=== PATIENT | female | born 1950 | race Caucasian/White ===

== ENCOUNTER 2016-08-21 16:24 | Emergency (ER) | payer MEDICARE ==
--- NOTE | 2016-08-21 16:30 | ER Document Report ---
ED Medical Screen (RME) - General Stated Complaint: FALL LEFT SIDE PAIN Mode of Arrival: Ambulatory Information source: Patient Notes: pt standing on a chair, fell hitting table with side and back. Pt denies any n /v. Pt c/o pain with deep inspiration. TRAVEL OUTSIDE OF THE [place] IN LAST 30 DAYS: No - Related Data Allergies/Adverse Reactions: adhesive [Adhesive] Allergy (Verified 06/28/16 11:48) codeine [Codeine] Allergy (Verified 06/28/16 11:48) latex [Latex] Allergy (Verified 06/28/16 11:48) Sulfa (Sulfonamide Antibiotics) Allergy (Verified 06/28/16 11:48) Past Medical History - Past Medical History Cardiac Medical History: Reports: Hx Hypercholesterolemia, Hx Hypertension GI Medical History: Reports: Hx Diverticulitis, Hx Gastroesophageal Reflux Disease, Hx Colonoscopy, Hx Endoscopy Musculoskeltal Medical History: Reports Hx Arthritis, Reports Hx Fibromyalgia, Reports Hx Musculoskeletal Deformity, Reports Hx Musculoskeletal Trauma Psychiatric Medical History: Reports: Hx Anxiety Traumatic Medical History: Reports: Hx Fractures - right rib Past Surgical History: Reports: Hx Appendectomy, Hx Cardiac Catheterization, Hx Cardiac Surgery - ablation for svt, Hx Cholecystectomy, Hx Hysterectomy, Hx Oral Surgery - salivary cland, Hx Umbilical Hernia - Immunizations Hx Diphtheria, Pertussis, Tetanus Vaccination: No Physical Exam - Respiratory Chest status: Tender - left lateral lower rib area, Pain with deep breathing
[2016-08-21] MEDS ORDERED: OXYCODONE-ACETAMINOPHEN 5-325 MG TABLET PO ONE (17:08)
--- NOTE | 2016-08-21 17:10 | ER Document Report ---
ED Fall - General Chief Complaint: Fall Stated Complaint: FALL LEFT SIDE PAIN Time seen by provider: 16:45 Mode of Arrival: Ambulatory Information source: Patient Notes: 65-year-old female presents to ED for fall with left rib pain. She states she was trying to take down a [place] decorations standing on a chair the chair slipped up from under her and she fell hitting the table and landing in the dog' s bowl. TRAVEL OUTSIDE OF THE [place] IN LAST 30 DAYS: No - HPI Occurred: Just prior to arrival Where: Home, Indoors Context: Fell from height - Fell off of the chair in the kitchen Associated symptoms: None Location of injury/pain: Other - Left lateral ribs Quality of pain: Sharp Severity: Moderate Pain Level: 4 - Related data Allergies/Adverse Reactions: adhesive [Adhesive] Allergy (Verified 08/21/16 16:31) codeine [Codeine] Allergy (Verified 08/21/16 16:31) latex [Latex] Allergy (Verified 08/21/16 16:31) Sulfa (Sulfonamide Antibiotics) Allergy (Verified 08/21/16 16:31) Past Medical History - General Information source: Patient - Social History Smoking Status: Never Smoker Cigarette use (# per day): No Chew tobacco use (# tins/day): No Frequency of alcohol use: Rare Drug Abuse: None Occupation: chief medical director Lives with: Family Family History: CAD, Other - Father with CHF and [place]. Mother with A-Fib. Patient has suicidal ideation: No Patient has homicidal ideation: No - Past Medical History Cardiac Medical History: Reports: Hx Hypercholesterolemia, Hx Hypertension GI Medical History: Reports: Hx Diverticulitis, Hx Gastroesophageal Reflux Disease, Hx Colonoscopy, Hx Endoscopy Musculoskeltal Medical History: Reports Hx Arthritis, Reports Hx Fibromyalgia, Reports Hx Musculoskeletal Deformity, Reports Hx Musculoskeletal Trauma Psychiatric Medical History: Reports: Hx Anxiety Traumatic Medical History: Reports: Hx Fractures - right rib Past Surgical History: Reports: Hx Appendectomy, Hx Cardiac Catheterization, Hx Cardiac Surgery - ablation for svt, Hx Cholecystectomy, Hx Hysterectomy, Hx Oral Surgery - salivary cland, Hx Orthopedic Surgery, Hx Umbilical Hernia - Immunizations Hx Diphtheria, Pertussis, Tetanus Vaccination: No Physical Exam - Vital signs Vitals: Temp Pulse Resp BP Pulse Ox 97.6 F 89 18 145/88 H 97 08/21/16 16:28 08/21/16 16:28 08/21/16 16:28 08/21/16 16:28 08/21/16 16:28 Interpretation: Hypertensive - Patient has a history of high blood pressure and is on medication she is in pain today - General General appearance: Appears well, Alert - HEENT Head: Normocephalic, Atraumatic Eyes: Normal Pupils: PERRL - Respiratory Respiratory status: No respiratory distress Chest status: Tender, Pain on movement, Pain with cough, Pain with deep breathing, Splinting Breath sounds: Normal Chest palpation: Normal - Cardiovascular Rhythm: Regular Heart sounds: Normal auscultation Murmur: No - Abdominal Inspection: Normal Distension: No distension Bowel sounds: Normal Tenderness: Nontender Organomegaly: No organomegaly - Back Back: Normal, Nontender - Extremities General upper extremity: Normal inspection, Nontender, Normal color, Normal ROM , Normal temperature General lower extremity: Normal inspection, Nontender, Normal color, Normal ROM , Normal temperature, Normal weight bearing. No: Tatiana's sign - Neurological Neuro grossly intact: Yes Cognition: Normal Orientation: AAOx4 Juan Alberto Coma Scale Eye Opening: Spontaneous Juan Alberto Coma Scale Verbal: Oriented [place] Coma Scale Motor: Obeys Commands [place] Coma Scale Total: 15 Speech: Normal Motor strength normal: LUE, RUE, LLE, RLE Sensory: Normal - Psychological Associated symptoms: Normal affect, Normal mood - Skin Skin Temperature: Warm Skin Moisture: Dry Skin Color: Normal Course - Re-evaluation Re-evalutation: 08/21/16 17:17 Discussed x-ray with patient and report given to patient for follow-up. Patient was treated with Percocet and instructed on use of an incentive spirometer to prevent pneumonia. Patient discharged home with a prescription for Percocet. - Vital Signs Vital signs: Temp Pulse Resp BP Pulse Ox 97.6 F 89 18 145/88 H 97 08/21/16 16:28 08/21/16 16:28 08/21/16 16:28 08/21/16 16:28 08/21/16 16:28 - Diagnostic Test Radiology reviewed: Image reviewed, Reports reviewed Discharge - Discharge Clinical Impression: left lateral rib fracture Condition: Stable Disposition: HOME, SELF-CARE Instructions: Family Physicians / Practices Additional Instructions: Rib Injuries and Fractures You have been diagnosed as having either bruised or broken ribs. These two injuries are treated in the same way. It will usually take four to six weeks for these injured ribs to heal. Sometimes, rib belts or anesthetic injections of the chest wall help reduce the pain. If you are using a rib belt, you should cough or take a deep breath at least every hour or two to prevent lung complications. You should not engage in any strenuous physical activity until released by your physician. The usual rule is "if it hurts, don't do it." Rib fractures can lead to serious lung complications including lung collapse, hemorrhage, and pneumonia. You should call the physician or return at once if any of the following occur: (1) Fever or chills. (2) Persistent cough, coughing up blood, or shortness of breath. (3) Increasing pain. (4) Weakness, lightheadedness, or fainting. Oral Narcotic Medication You have been given a prescription for pain control. This medication is a narcotic. It's best taken with food, as nausea can result if taken on an empty stomach. Don't operate machinery or drive within six hours of taking this medication. Do not combine this medicine with alcohol, or with any medication which can cause sedation (such as cold tablets or sleeping pills) unless you get permission from the physician. Narcotics tend to cause constipation. If possible, drink plenty of fluids and eat a diet high in fiber and fruits. Ice Packs Apply ice packs frequently against the painful area. Many different schedules are recommended, such as "20 minutes on, 20 minutes off" or "one hour ice, two hours rest." If you need to work, you may need to go longer between ice treatments. You should plan to have the area ice packed AT LEAST one fourth of the time. The ice should be applied over the wrap, tape, or splint, or over a layer of cloth -- not directly against the skin. Some ice bags have a built-in cloth and can be put directly on the skin. FOLLOW-UP CARE: If you have been referred to a physician for follow-up care, call the physician s office for an appointment as you were instructed or within the next two days. If you experience worsening or a significant change in your symptoms, notify the physician immediately or return to the Emergency Department at any time for re-evaluation. Prescriptions: Oxycodone HCl/Acetaminophen [Percocet 5-325 mg Tablet] 1 tab PO Q6HP PRN #10 tablet PRN Reason: Forms: Elevated Blood Pressure, Return to Work
[2016-08-21 17:26] VITALS: BP 125/88
== END 2016-08-21 17:24 | disposition home or self-care (01) ==
LOC: ER 16:24
DX: S22.32XA Fracture of one rib, left side, initial encounter for closed fracture (principal); R10.9 Unspecified abdominal pain; R07.81 Pleurodynia; W19.XXXA Unspecified fall, initial encounter
CPT/HCPCS: 99283; 71101; A9270

== ENCOUNTER 2016-09-04 15:19 | Emergency (ER) | payer MEDICARE ==
--- NOTE | 2016-09-04 15:31 | ER Document Report ---
Addendum entered and electronically signed by LOVE ABDALLA NP 09/04/16 15:32 : Course - Re-evaluation Re-evalutation: 09/04/16 15:32 Correction it was not a pneumothorax but was atelectasis on the right side. Original Note: ED Medical Screen (RME) - General Stated Complaint: RIB PAIN Time seen by provider: 15:29 Mode of Arrival: Ambulatory Information source: Patient Notes: 65-year-old female fractured a left rib with a small pneumothorax two weeks ago while standing on a chair which gave out from underneath of her. She was seen in our emergency department. She is here today because of persistent pain and discomfort. She is unable to lay on that side or sleep on that side. TRAVEL OUTSIDE OF THE [place] IN LAST 30 DAYS: No - Related Data Allergies/Adverse Reactions: adhesive [Adhesive] Allergy (Verified 08/21/16 16:31) codeine [Codeine] Allergy (Verified 08/21/16 16:31) latex [Latex] Allergy (Verified 08/21/16 16:31) Sulfa (Sulfonamide Antibiotics) Allergy (Verified 08/21/16 16:31) Past Medical History - Past Medical History Cardiac Medical History: Reports: Hx Hypercholesterolemia, Hx Hypertension GI Medical History: Reports: Hx Diverticulitis, Hx Gastroesophageal Reflux Disease, Hx Colonoscopy, Hx Endoscopy Musculoskeltal Medical History: Reports Hx Arthritis, Reports Hx Fibromyalgia, Reports Hx Musculoskeletal Deformity, Reports Hx Musculoskeletal Trauma Psychiatric Medical History: Reports: Hx Anxiety Traumatic Medical History: Reports: Hx Fractures - right rib Past Surgical History: Reports: Hx Appendectomy, Hx Cardiac Catheterization, Hx Cardiac Surgery - ablation for svt, Hx Cholecystectomy, Hx Hysterectomy, Hx Oral Surgery - salivary cland, Hx Orthopedic Surgery, Hx Umbilical Hernia - Immunizations Hx Diphtheria, Pertussis, Tetanus Vaccination: No
--- NOTE | 2016-09-04 17:15 | ER Document Report ---
ED General - General Chief Complaint: Rib Pain Stated Complaint: RIB PAIN Time seen by provider: 17:10 Mode of Arrival: Ambulatory Notes: 65-year-old female presents to ED for continued pain in her left ribs after a # 8 rib fracture 2 weeks ago. She states she is content having persistent pain in the area and cannot lay on that side. TRAVEL OUTSIDE OF THE [place] IN LAST 30 DAYS: No - HPI Onset: Other - 08/21/2016 Onset/Duration: Sudden, Persistent, Waxing and waning Quality of pain: Sharp Severity: Moderate Pain Level: 4 Associated symptoms: Other - Pain in left ribs lateral Exacerbated by: Movement, Coughing, Deep breathing, Other - Sneezing Relieved by: Other - Pain medication and splinting Similar symptoms previously: Yes Recently seen / treated by doctor: Yes - Related Data Allergies/Adverse Reactions: adhesive [Adhesive] Allergy (Verified 09/04/16 15:30) codeine [Codeine] Allergy (Verified 09/04/16 15:30) latex [Latex] Allergy (Verified 09/04/16 15:30) Sulfa (Sulfonamide Antibiotics) Allergy (Verified 09/04/16 15:30) Past Medical History - General Information source: Patient - Social History Smoking Status: Never Smoker Cigarette use (# per day): No Chew tobacco use (# tins/day): No Smoking Education Provided: No Frequency of alcohol use: None Drug Abuse: None Occupation: medical billing coordinator part-time Lives with: Family Family History: CAD, Other - Father with CHF and [place]. Mother with A-Fib. Patient has suicidal ideation: No Patient has homicidal ideation: No - Past Medical History Cardiac Medical History: Reports: Hx Hypercholesterolemia, Hx Hypertension Pulmonary Medical History: Reports: None EENT Medical History: Reports: None Neurological Medical History: Reports: None Endocrine Medical History: Reports: None Renal/ Medical History: Denies: Hx Peritoneal Dialysis GI Medical History: Reports: Hx Diverticulitis, Hx Gastroesophageal Reflux Disease, Hx Colonoscopy, Hx Endoscopy Musculoskeltal Medical History: Reports Hx Arthritis, Reports Hx Fibromyalgia, Reports Hx Musculoskeletal Deformity, Reports Hx Musculoskeletal Trauma Psychiatric Medical History: Reports: Hx Anxiety Traumatic Medical History: Reports: Hx Fractures - right rib Past Surgical History: Reports: Hx Appendectomy, Hx Cardiac Catheterization, Hx Cardiac Surgery - ablation for svt, Hx Cholecystectomy, Hx Hysterectomy, Hx Oral Surgery - salivary cland, Hx Orthopedic Surgery, Hx Umbilical Hernia - Immunizations Hx Diphtheria, Pertussis, Tetanus Vaccination: No Review of Systems - Review of Systems Constitutional: No symptoms reported EENT: No symptoms reported Cardiovascular: Chest pain - Due to left eighth lateral rib fracture 2 weeks ago Respiratory: No symptoms reported, Hurts to breathe - Pain with cough and deep breathing sneezing or movement. Patient states she's not able to lay on that side Gastrointestinal: No symptoms reported Genitourinary: No symptoms reported Female Genitourinary: No symptoms reported Musculoskeletal: No symptoms reported Skin: No symptoms reported Hematologic/Lymphatic: No symptoms reported Neurological/Psychological: No symptoms reported -: Yes All other systems reviewed and negative Physical Exam - Vital signs Vitals: Temp Pulse Resp BP Pulse Ox 97.9 F 92 16 120/90 H 96 09/04/16 15:30 09/04/16 15:30 09/04/16 15:30 09/04/16 15:30 09/04/16 15:30 Interpretation: Normal - General General appearance: Appears well, Alert - HEENT Head: Normocephalic, Atraumatic Eyes: Normal Pupils: PERRL - Respiratory Respiratory status: No respiratory distress Chest status: Tender - Left lateral ribs, has a fracture on #8 laterally Breath sounds: Normal Chest palpation: Normal - Cardiovascular Rhythm: Regular Heart sounds: Normal auscultation Murmur: No - Abdominal Inspection: Normal Distension: No distension Bowel sounds: Normal Tenderness: Nontender Organomegaly: No organomegaly - Back Back: Normal, Nontender - Extremities General upper extremity: Normal inspection, Nontender, Normal color, Normal ROM , Normal temperature General lower extremity: Normal inspection, Nontender, Normal color, Normal ROM , Normal temperature, Normal weight bearing. No: Tatiana's sign - Neurological Neuro grossly intact: Yes Cognition: Normal Orientation: AAOx4 Juan Alberto Coma Scale Eye Opening: Spontaneous [place] Coma Scale Verbal: Oriented [place] Coma Scale Motor: Obeys Commands [place] Coma Scale Total: 15 Speech: Normal Motor strength normal: LUE, RUE, LLE, RLE Sensory: Normal - Psychological Associated symptoms: Normal affect, Normal mood - Skin Skin Temperature: Warm Skin Moisture: Dry Skin Color: Normal Course - Re-evaluation Re-evalutation: 09/04/16 17:32 Discussed x-rays with patient. Informed patient that I would give her some more narcotics today but after this she needs to get any further pain medicines from her primary doctor. Encourage patient to continue splinting the we have when coughing sneezing and that it will hurt laying on it for up to 4 weeks. - Vital Signs Vital signs: Temp Pulse Resp BP Pulse Ox 97.9 F 83 16 144/90 H 97 09/04/16 15:30 09/04/16 17:23 09/04/16 17:23 09/04/16 17:23 09/04/16 17:23 - Diagnostic Test Radiology reviewed: Image reviewed, Reports reviewed Discharge - Discharge Clinical Impression: follow-up right rib fracture 2 weeks ago Condition: Stable Disposition: HOME, SELF-CARE Additional Instructions: Rib Injuries and Fractures You have been diagnosed as having either bruised or broken ribs. These two injuries are treated in the same way. It will usually take four to six weeks for these injured ribs to heal. Sometimes, rib belts or anesthetic injections of the chest wall help reduce the pain. If you are using a rib belt, you should cough or take a deep breath at least every hour or two to prevent lung complications. You should not engage in any strenuous physical activity until released by your physician. The usual rule is "if it hurts, don't do it." Rib fractures can lead to serious lung complications including lung collapse, hemorrhage, and pneumonia. You should call the physician or return at once if any of the following occur: (1) Fever or chills. (2) Persistent cough, coughing up blood, or shortness of breath. (3) Increasing pain. (4) Weakness, lightheadedness, or fainting. Your x-ray shows healing rib was no pneumothorax or no new pneumonia. ICE PACKS: Apply ice packs frequently against the painful area. Many different schedules are recommended, such as "20 minutes on, 20 minutes off" or "one hour ice, two hours rest." If you need to work, you may need to go longer between ice treatments. You should plan to have the area ice packed AT LEAST one fourth of the time. The ice should be applied over the wrap, tape, or splint, or over a layer of cloth -- not directly against the skin. Some ice bags have a built-in cloth and can be put directly on the skin. WARM PACKS: After approximately two days, apply gentle heat (such as a heating pad or hot water bottle) for about 20 to 30 minutes about every two hours -- at least four times daily. Warmth and elevation will help you make a more rapid recovery , and will ease the pain considerably. Do not use HOT heat, and never apply heat for longer than 30 minutes. The continuous heat can invisibly damage skin and muscles -- even when no burn is seen on the surface. Damaged muscles can make you MORE sore. ORAL NARCOTIC MEDICATION: You have been given a prescription for pain control. This medication is a narcotic. It's best taken with food, as nausea can result if taken on an empty stomach. Don't operate machinery or drive within six hours of taking this medication. Do not combine this medicine with alcohol, or with any medication which can cause sedation (such as cold tablets or sleeping pills) unless you get permission from the physician. Narcotics tend to cause constipation. If possible, drink plenty of fluids and eat a diet high in fiber and fruits. FOLLOW-UP CARE: If you have been referred to a physician for follow-up care, call the physician s office for an appointment as you were instructed or within the next two days. If you experience worsening or a significant change in your symptoms, notify the physician immediately or return to the Emergency Department at any time for re-evaluation. Prescriptions: Oxycodone HCl/Acetaminophen [Percocet 5-325 mg Tablet] 1 tab PO Q6HP PRN #15 tablet PRN Reason: Forms: Elevated Blood Pressure, Return to Work Referrals: ILYA MAY MD [Primary Care Provider] - Follow up as needed
[2016-09-04 17:24] VITALS: BP 144/90
== END 2016-09-04 17:26 | disposition home or self-care (01) ==
LOC: ER 15:19
DX: S22.41XD Multiple fractures of ribs, right side, subsequent encounter for fracture with routine healing (principal); R07.81 Pleurodynia; X58.XXXD Exposure to other specified factors, subsequent encounter
CPT/HCPCS: 71020; 99283

== ENCOUNTER → 2017-04-15 | Outpatient (CLI) | payer MEDICARE ==
--- NOTE | 2017-04-15 09:39 | WOMENS IMAGING REPORT ---
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 LIMITATIONS: None. FINDINGS: LUMBAR SPINE: The bone mineral density (BMD) measured from L1-L4 in the AP projection correlates with a T-score of -2.2, which is osteopenic as defined by the World Health Organization. This is similar compared to 2 016. HIP: The bone mineral density (BMD) measured in the left femoral neck at the hip correlates with a T-score of -2.3, which is osteopenic as defined by the World Health Organization. This is similar compared to 2016 IMPRESSION: 1. LUMBAR SPINE: Osteopenic 2. HIP: Osteopenic COMMENT: The World Health Organization defines low BMD as follows: T-score: Normal: Greater than -1.0 Osteopenia: Between -1.0 and -2.5 Osteoporosis: Less than -2.5 without fractures Established osteoporosis: Less than -2.5 with fractures In general, you may wish to consider: Diagnosis Treatment Follow-up DEXA Normal BMD Prevention 2-3 years Osteopenia Prevention/Therapy 1-2 years Osteoporosis Therapy Yearly TECHNICAL DOCUMENTATION: JOB ID: [id number] [employer]- All Rights Reserved
--- NOTE | 2017-04-15 12:04 | WOMENS IMAGING REPORT ---
EXAM DESCRIPTION: BILAT SCREENING MAMMO W/CAD COMPLETED DATE/TIME: 04/15/2017 9:24 am REASON FOR STUDY: SCREENING MAMMO Z12.31 ENCNTR SCREEN MAMMOGRAM FOR MALIGNANT NEOPLASM OF SYDNEE M81. 0 AGE-RELATED OSTEOPOROSIS W/O CURRENT PATHOLOGICAL FRAC COMPARISON: Mammograms 02/24/2016 Right breast ultrasound 03/16/2016 TECHNIQUE: Standard craniocaudal and mediolateral oblique views of each breast recorded using [employer] acquisition. LIMITATIONS: None. FINDINGS: Findings present which are benign by mammographic criteria. No suspicious masses, calcifi cations or architectural distortion. Pertinent benign findings: Stable right breast benign intramammary lymph node. Stable bilateral tasha gn breast parenchymal calcifications Read with the assistance of CAD. .[facility] - R2 Cenova Version 1.3 .[facility] - R2 Cenova Version 1.3 .[facility] - R2 Cenova Version 2.4 .[facility] [place] - R2 Cenova Version 2.4 .[facility] - R2 [employer] Version 9.2 Benign mammographic findings may include one or more of the following: Smooth masses, popcorn/rim/co arse calcifications, asymmetries, post-procedure changes, and lesions with long-standing stability. IMPRESSION: BENIGN MAMMOGRAPHIC FINDINGS. BIRADS 2 BREAST DENSITY: b. There are scattered areas of fibroglandular density. BIRAD: 2 BENIGN FINDING(S) RECOMMENDATION: ROUTINE SCREENING Please consider bilateral screening tomosynthesis in April 2018 COMMENT: The patient has been notified of the results by letter per SA requirements. Additional no tification policies are in place for contacting patient with suspicious or incomplete findings. Quality ID #[id number]: The [employer] recommends an annual screening mammogram for women aged 40 years or over. This facility utilizes a reminder system to ensure that all patients receive reminder letters, and/or direct phone calls for appointments. This includes reminders for routine scr eening mammograms, diagnostic mammograms, or other Breast Imaging Interventions when appropriate. Th is patient will be placed in the appropriate reminder system. The [employer] (ACR) has developed recommendations for screening MRI of the breast s in certain patient populations, to be used in conjunction with mammography. Breast MRI surveillanc e may be appropriate for women with more than 20% lifetime risk of developing breast cancer as deter mined by genetic testing, significant family history of the disease, or history of mantle radiation f or Hodgkins Disease. ACR Practice Guidelines 2008. TECHNICAL DOCUMENTATION: FINDING NUMBER: (1) ASSESSMENT: (1) JOB ID: [id number] [employer]- All Rights Reserved
== END ==
LOC: WI 08:02
PROVIDERS: ATTEND Physician Assistant
DX: Z12.31 Encounter for screening mammogram for malignant neoplasm of breast (principal); M81.0 Age-related osteoporosis without current pathological fracture
CPT/HCPCS: 77080; G0202; 77067

== ENCOUNTER → 2017-05-04 | Outpatient (CLI) | payer MEDICARE ==
--- NOTE | 2017-05-04 15:29 | WOMENS IMAGING REPORT ---
EXAM DESCRIPTION: TRANSVAGINAL ULTRASOUND COMPLETED DATE/TIME: 05/04/2017 2:54 pm REASON FOR STUDY: LEFT LOWER ABDOMEN PAIN; R10.32 R10.32 LEFT LOWER QUADRANT PAIN COMPARISON: None. TECHNIQUE: Dynamic and static grayscale images acquired of the pelvis via transvaginal approach and recorded on PACS. Additional selected color Doppler and spectral images recorded. LIMITATIONS: Study is limited somewhat due to overlying bowel gas. FINDINGS: UTERUS: Status post hysterectomy. RIGHT OVARY: Not visualized. LEFT OVARY: Not visualized. FREE FLUID: None noted. OTHER: No other significant finding. IMPRESSION: Somewhat limited study as noted above. No significant pelvic abnormalities were identif ied. TECHNICAL DOCUMENTATION: JOB ID: [id number] [employer]- All Rights Reserved
== END ==
LOC: WI 13:30
PROVIDERS: ATTEND Physician Assistant
DX: R10.32 Left lower quadrant pain (principal)
CPT/HCPCS: 76830

== ENCOUNTER → 2019-09-14 | Outpatient (CLI) | payer MEDICAID, MEDICARE ==
--- NOTE | 2019-09-14 10:55 | WOMENS IMAGING REPORT ---
EXAM DESCRIPTION: BONE DENSITY HIP/SPINE COMPLETED DATE/TIME: 09/14/2019 8:49 am REASON FOR STUDY: Z78.0 BONE DENSITY Z12.31 ENCNTR SCREEN MAMMOGRAM FOR MALIGNANT NEOPLASM OF SYDNEE Z 78.0 ASYMPTOMATIC MENOPAUSAL STATE COMPARISON: 2016, 2015 TECHNIQUE: Dual-Energy X-ray Absorptiometry (DEXA) of the AP Spine and Hip. LIMITATIONS: None. FINDINGS: LUMBAR SPINE: The bone mineral density (BMD) measured from L1-L4 in the AP projection correlates with a T-score of -1.8, which is osteopenic as defined by the World Health Organization. BMD Change vs Baseline: This represents a 5% increase in bone density since both prior assessments HIP: The bone mineral density (BMD) measured in the left femoral neck at the hip correlates with a T-score of -2.2, which is osteopenic as defined by the World Health Organization. BMD Change vs Baseline: This represents a 7% increase in bone density since 2016 10 year Fracture Risk Assessment: Major Osteoporotic Fracture: 20% Hip Fracture: 4.2% IMPRESSION: 1. LUMBAR SPINE WHO CLASSIFICATION: Osteopenic 2. HIP WHO CLASSIFICATION: Osteopenic OVERALL ASSESSMENT: WHO CLASSIFICATION: Osteopenic COMMENT: The World Health Organization defines low BMD as follows: T-score: Normal: Greater than -1.0 Osteopenia: Between -1.0 and -2.5 Osteoporosis: Less than -2.5 without fractures Established osteoporosis: Less than -2.5 with fractures In general, you may wish to consider: Diagnosis Treatment Follow-up DEXA Normal BMD Prevention 2-3 years Osteopenia Prevention/Therapy 1-2 years Osteoporosis Therapy Yearly TECHNICAL DOCUMENTATION: JOB ID: [id number] [employer]- All Rights Reserved Reading location - IP/workstation name: [email or web address]
--- NOTE | 2019-09-17 12:39 | WOMENS IMAGING REPORT ---
EXAM DESCRIPTION: 3D SCREENING MAMMO BILAT COMPLETED DATE/TIME: 09/14/2019 8:49 am REASON FOR STUDY: Z12.31 SCREENING MAMMO Z12.31 ENCNTR SCREEN MAMMOGRAM FOR MALIGNANT NEOPLASM OF B RE Z78.0 ASYMPTOMATIC MENOPAUSAL STATE COMPARISON: 2015 and 2016 EXAM PARAMETERS: Standard craniocaudal and mediolateral oblique views of each breast recorded using digital acquisition and breast tomosynthesis. Read with the assistance of CAD. .[facility], LATER [facility] - [employer] Associate Professor Of Geography Version 9.2 LIMITATIONS: None. FINDINGS: Findings present which are benign by mammographic criteria. No suspicious masses, calcific ations or architectural distortion. Pertinent benign findings: Small partially circumscribed asymmetries and masses in the right breast, stable over time. Benign mammographic findings may include one or more of the following: Smooth masses, popcorn/rim/coa rse calcifications, asymmetries, post-procedure changes, and lesions with long-standing stability. IMPRESSION: BENIGN MAMMOGRAPHIC FINDINGS. BIRADS 2 BREAST DENSITY: b. There are scattered areas of fibroglandular density. BIRAD: ASSESSMENT: 2 BENIGN FINDING(S) RECOMMENDATION: ROUTINE SCREENING COMMENT: The patient has been notified of the results by letter per MQSA requirements. Additional no tification policies are in place for contacting patient with suspicious or incomplete findings. Quality ID #[id number]: The [employer] recommends an annual screening mammogram for women aged 40 years or over. This facility utilizes a reminder system to ensure that all patients receive reminder letters, and/or direct phone calls for appointments. This includes reminders for routine scr eening mammograms, diagnostic mammograms, or other Breast Imaging Interventions when appropriate. Th is patient will be placed in the appropriate reminder system. TECHNICAL DOCUMENTATION: FINDING NUMBER: (1) ASSESSMENT: (1) JOB ID: [id number] [employer]- All Rights Reserved Reading location - IP/workstation name: [email or web address]
== END ==
LOC: RAD 07:50
PROVIDERS: ATTEND Physician Assistant
DX: Z12.31 Encounter for screening mammogram for malignant neoplasm of breast (principal); N63.10 Unspecified lump in the right breast, unspecified quadrant; M85.88 Other specified disorders of bone density and structure, other site; Z78.0 Asymptomatic menopausal state
CPT/HCPCS: 77063; 77067; 77080

== ENCOUNTER 2020-05-14 16:36 | Observation (INO) | payer MEDICARE ==
[~2020-05-14 16:36] MED LIST: REGADENOSON INJ 0.4 MG/5 ML DISP.SYRIN IV ONE
--- NOTE | 2020-05-14 16:53 | ER Document Report ---
ED Medical Screen (RME) - General Chief Complaint: Chest Pain Stated Complaint: CHEST PAIN Time Seen by Provider: 05/14/20 16:48 Primary Care Provider: PETE ESPINOZA PA-C [Primary Care Provider] - Follow up as needed Information source: Patient Notes: Patient presents complaining of chest pain that radiates around to her back for the past month. Patient states that typically she will have exertional shortness of breath with increased heart rate and increased blood pressure that resolves with rest for the past month. Patient states that her chest pain has been constant since last night. Patient does report shortness of breath and nausea. Patient does report a history of lupus. I have greeted and performed a rapid initial assessment of this patient. A comprehensive ED assessment and evaluation of the patient, analysis of test results and completion of the medical decision making process will be conducted by additional ED providers. TRAVEL OUTSIDE OF THE [place] IN LAST 30 DAYS: No - Related Data Allergies/Adverse Reactions: adhesive [Adhesive] Allergy (Verified 05/14/20 16:49) codeine [Codeine] Allergy (Verified 05/14/20 16:49) latex [Latex] Allergy (Verified 05/14/20 16:49) Sulfa (Sulfonamide Antibiotics) Allergy (Verified 05/14/20 16:49) Past Medical History - Past Medical History Cardiac Medical History: Reports: Hx Hypercholesterolemia, Hx Hypertension Renal/ Medical History: Denies: Hx Peritoneal Dialysis GI Medical History: Reports: Hx Diverticulitis, Hx Gastroesophageal Reflux Disease, Hx Colonoscopy, Hx Endoscopy Musculoskeltal Medical History: Reports Hx Arthritis, Reports Hx Fibromyalgia, Reports Hx Musculoskeletal Deformity, Reports Hx Musculoskeletal Trauma Psychiatric Medical History: Reports: Hx Anxiety Traumatic Medical History: Reports: Hx Fractures - right rib Past Surgical History: Reports: Hx Appendectomy, Hx Cardiac Catheterization, Hx Cardiac Surgery - ablation for svt, Hx Cholecystectomy, Hx Hysterectomy, Hx Oral Surgery - salivary cland, Hx Orthopedic Surgery, Hx Umbilical Hernia - Immunizations Hx Diphtheria, Pertussis, Tetanus Vaccination: No Physical Exam - Vital signs Vitals: Temp Pulse Resp BP Pulse Ox 97.8 F 81 16 154/82 H 97 05/14/20 16:45 05/14/20 16:45 05/14/20 16:45 05/14/20 16:45 05/14/20 16:45 - Respiratory Respiratory status: No respiratory distress Chest status: Tender Breath sounds: Normal - Cardiovascular Rhythm: Regular Heart sounds: S1 appreciated, S2 appreciated Course - Vital Signs Vital signs: Temp Pulse Resp BP Pulse Ox 97.8 F 81 16 154/82 H 97 05/14/20 16:45 05/14/20 16:45 05/14/20 16:45 05/14/20 16:45 05/14/20 16:45 Doctor's Discharge - Discharge Referrals: PETE EPSINOZA PA-C [Primary Care Provider] - Follow up as needed
[2020-05-14 17:43] LABS: ABSOLUTE BASOPHILS # (AUTO) 0.1 10^3/uL (0.0-0.2); ABSOLUTE EOSINOPHILS # (AUTO) 0.1 10^3/uL (0.0-0.6); ABSOLUTE LYMPHOCYTES (AUTO) 2.8 10^3/uL (0.5-4.7); ABSOLUTE MONOCYTES (AUTO) 0.6 10^3/uL (0.1-1.4); ABSOLUTE NEUT (AUTO) 2.8 10^3/uL (1.7-8.2); BASOPHILS % (AUTO) 1.3 % (0-2); HEMOGLOBIN 15.9 g/dL (12.0-15.5); LYMPHOCYTES % (AUTO) 43.5 % (13-45); MEAN CORPUSCULAR HEMOGLOBIN 31.1 pg (27.0-33.4); MEAN CORPUSCULAR HGB CONC 36.1 g/dL (32.0-36.0); MEAN CORPUSCULAR VOLUME 86 fl (80-97); MONOCYTES % (AUTO) 9.4 % (3-13); PLATELET COUNT 243 10^3/uL (150-450); RED BLOOD COUNT 5.11 10^6/uL (3.72-5.28); SEGMENTED NEUTROPHILS % (AUTO) 43.8 % (42-78); TOTAL CELLS COUNTED % (AUTO) 100 %; WHITE BLOOD COUNT 6.5 10^3/uL (4.0-10.5)
[2020-05-14 18:04] LABS: ALKALINE PHOSPHATASE 56 U/L (38-126); ANION GAP 11 (5-19); ASPARTATE AMINO TRANSFERASE 26 U/L (14-36); BILIRUBIN,DIRECT 0.3 mg/dL (0.0-0.4); BILIRUBIN,TOTAL 0.6 mg/dL (0.2-1.3); BLOOD UREA NITROGEN 20 mg/dL (7-20); CALCIUM 9.7 mg/dL (8.4-10.2); CARBON DIOXIDE 27 mmol/L (22-30); CHLORIDE 100 mmol/L (98-107); GLUCOSE 97 mg/dL (75-110); POTASSIUM 3.3 mmol/L (3.6-5.0); TOTAL PROTEIN 7.7 g/dL (6.3-8.2)
--- NOTE | 2020-05-14 18:05 | RADIOLOGY REPORT (SQ) ---
EXAM DESCRIPTION: CHEST 2 VIEWS IMAGES COMPLETED DATE/TIME: 05/14/2020 4:30 pm REASON FOR STUDY: cp COMPARISON: 09/04/2016 EXAM PARAMETERS: NUMBER OF VIEWS: two views TECHNIQUE: Digital Frontal and Lateral radiographic views of the chest acquired. RADIATION DOSE: NA LIMITATIONS: none FINDINGS: LUNGS AND PLEURA: Lungs are hyperinflated. Biapical pleural and parenchymal scarring is s table. No focal consolidation or pleural effusion. No pneumothorax. MEDIASTINUM AND HILAR STRUCTURES: No masses or contour abnormalities. HEART AND VASCULAR STRUCTURES: Heart normal size. No evidence for failure. BONES: Chronic healed left rib fractures are stable from prior. No acute osseous abnormality. HARDWARE: None in the chest. OTHER: No other significant finding. IMPRESSION: NO ACUTE RADIOGRAPHIC FINDING IN THE CHEST. TECHNICAL DOCUMENTATION: JOB ID: [id number] Managed [employer]- All Rights Reserved Reading location - IP/workstation name: [email or web address]
--- NOTE | 2020-05-14 18:15 | EKG REPORT ---
SEVERITY:- ABNORMAL ECG - SINUS RHYTHM LVH BY VOLTAGE NONSPECIFIC ST-T CHANGES- INFERIOR LEADS : Confirmed by: Mikey Moreno MD 14-May-2020 18:14:50
[2020-05-14 18:16] LABS: NT PRO BNP 58 pg/mL (<125)
[2020-05-14 18:21] LABS: TROPONIN I < 0.012 ng/mL
[2020-05-14] MEDS ORDERED: POTASSIUM CHLORIDE 20 MEQ PACKET PO ONE (18:21)
--- NOTE | 2020-05-14 18:47 | ER Document Report ---
Entered by GREGORY MONTE SCRIBE 05/14/20 1803 Acting as scribe for:JOSÉ MIGUEL PARK, DO ED General - General Chief Complaint: Chest Pain Stated Complaint: CHEST PAIN Time Seen by Provider: 05/14/20 16:48 Primary Care Provider: PETE ESPINOZA PA-C [Primary Care Provider] - Follow up as needed Information source: Patient Notes: This 69 year old female patient with history of HTN, HLD, and Lupus presents to the emergency department today with complaints of chest pain for the past x1 month. Patient reports increased heart rate and blood pressure when exerting her self doing yard work the past month. Patient states this is followed by chest pain and shortness of breath that resolves after resting. Patient states last night she had sudden chest pain that is constant and still present. Patient reports nausea and diarrhea. Denies any vomiting, cough, or covid exposure. Patient reports medical history of SVT and x2 Ablations, her last x8 years ago and states her last stress test was x2 years ago. TRAVEL OUTSIDE OF THE [place] IN LAST 30 DAYS: No - Related Data Allergies/Adverse Reactions: adhesive [Adhesive] Allergy (Verified 05/14/20 16:49) codeine [Codeine] Allergy (Verified 05/14/20 16:49) latex [Latex] Allergy (Verified 05/14/20 16:49) Sulfa (Sulfonamide Antibiotics) Allergy (Verified 05/14/20 16:49) Home Medications: hctz. nexium. zocor. benadryl Past Medical History - General Information source: Patient - Social History Smoking Status: Never Smoker Cigarette use (# per day): No Chew tobacco use (# tins/day): No Frequency of alcohol use: Occasional Drug Abuse: None Family History: CAD Patient has homicidal ideation: No - Past Medical History Cardiac Medical History: Reports: Hx Hypercholesterolemia, Hx Hypertension, Other - SVT GI Medical History: Reports: Hx Diverticulitis, Hx Gastroesophageal Reflux Disease, Hx Colonoscopy, Hx Endoscopy Musculoskeletal Medical History: Reports Hx Arthritis, Reports Hx Fibromyalgia, Reports Hx Musculoskeletal Deformity, Reports Hx Musculoskeletal Trauma Psychiatric Medical History: Reports: Hx Anxiety Traumatic Medical History: Reports: Hx Fractures - right rib Past Surgical History: Reports: Hx Appendectomy, Hx Cardiac Catheterization, Hx Cardiac Surgery - Ablation x2 for svt, Hx Cholecystectomy, Hx Hysterectomy, Hx Oral Surgery - salivary cland, Hx Orthopedic Surgery, Hx Umbilical Hernia - Immunizations Hx Diphtheria, Pertussis, Tetanus Vaccination: No Review of Systems - Review of Systems Constitutional: No symptoms reported EENT: No symptoms reported Cardiovascular: See HPI, Chest pain Respiratory: See HPI, Short of breath. denies: Cough Gastrointestinal: See HPI, Diarrhea, Nausea. denies: Vomiting Genitourinary: No symptoms reported Female Genitourinary: No symptoms reported Musculoskeletal: No symptoms reported Skin: No symptoms reported Hematologic/Lymphatic: No symptoms reported Neurological/Psychological: No symptoms reported -: Yes All other systems reviewed and negative Physical Exam - Vital signs Vitals: Temp Pulse Resp BP Pulse Ox 97.8 F 81 16 154/82 H 97 05/14/20 16:45 05/14/20 16:45 05/14/20 16:45 05/14/20 16:45 05/14/20 16:45 - General General appearance: Appears well, Alert - HEENT Head: Normocephalic, Atraumatic Eyes: Normal Pupils: PERRL - Respiratory Respiratory status: No respiratory distress Chest status: Nontender Breath sounds: Normal Chest palpation: Normal - Cardiovascular Rhythm: Regular Heart sounds: Normal auscultation Murmur: No - Abdominal Inspection: Normal - Soft Distension: No distension Bowel sounds: Normal Tenderness: Nontender - Extremities General upper extremity: Normal inspection, Normal ROM General lower extremity: Normal inspection, Normal ROM. No: Edema - Neurological Neuro grossly intact: Yes Cognition: Normal Orientation: AAOx4 Juan Alberto Coma Scale Eye Opening: Spontaneous Juan Alberto Coma Scale Verbal: Oriented Juan Alberto Coma Scale Motor: Obeys Commands Juan Alberto Coma Scale Total: 15 Speech: Normal - Psychological Associated symptoms: Normal affect, Normal mood - Skin Skin Temperature: Warm Skin Moisture: Dry Skin Color: Normal Course - Re-evaluation Re-evalutation: 05/14/20 18:28 MDM 69 year old female arrives with complaints of chest pain and racing heart. H/o stress perhaps 2 years ago but no known cad. Also, has svt in history with ablation at [facility] several years ago. No fever or covid symptoms. Workup here is reassuring. She does have a low K which has been addressed. We will treat that and she would like inpt evaluation. I have paged Dr. Moya and am awaiting call back. 05/14/20 18:35 Dr Michaels is covering Dr. Moya for inpatients at this time. I have paged Dr. Michaels 05/14/20 18:51 - Vital Signs Vital signs: Temp Pulse Resp BP Pulse Ox 97.8 F 81 14 153/99 H 98 05/14/20 17:10 05/14/20 16:45 05/14/20 19:01 05/14/20 19:01 05/14/20 19:01 - Laboratory Result Diagrams: 05/14/20 17:19 05/14/20 17:19 Laboratory results interpreted by me: 05/14/20 05/14/20 17:19 17:19 Hgb 15.9 H MCHC 36.1 H Potassium 3.3 L - Diagnostic Test Radiology reviewed: Image reviewed, Reports reviewed - EKG Interpretation by Me EKG shows normal: Sinus rhythm Rate: Normal Rhythm: NSR - NSR NL [place] [address] no [address] elevation or depression my interpretation. Discharge - Discharge Clinical Impression: Palpitations Chest pain Qualifiers: Chest pain type: unspecified Qualified Code(s): R07.9 - Chest pain, unspecified Condition: Stable Disposition: ADMITTED OBSERVATION Admitting Provider: [facility] Admitted: Telemetry Referrals: PETE ESPINOZA PA-C [Primary Care Provider] - Follow up as needed I personally performed the services described in the documentation, reviewed and edited the documentation which was dictated to the scribe in my presence, and it accurately records my words and actions.
[2020-05-14] MEDS ORDERED: (PENDING PHARMACY ID) (Esomeprazole Magnesium [Nexium] 20 MG) PO SCH (21:00)
[2020-05-14] MEDS ORDERED: ASPIRIN 81 MG TABLET, CHEWABLE PO ONE (21:30)
[2020-05-14] MEDS ORDERED: CLOPIDOGREL BISULFATE 300 MG TABLET PO ONE (22:00)
[2020-05-14] MEDS ORDERED: ATORVASTATIN CALCIUM 80 MG TABLET PO SCH (22:00)
[2020-05-14] MEDS ORDERED: CLOPIDOGREL BISULFATE 300 MG TABLET ONE (23:02)
[2020-05-14] MEDS: PANTOPRAZOLE SODIUM 20 MG TABLET.DR PO SCH (23:08)
[2020-05-15] MEDS: PANTOPRAZOLE SODIUM 20 MG TABLET.DR PO SCH (06:24)
[2020-05-15] MEDS ORDERED: CLOPIDOGREL BISULFATE 75 MG TABLET PO SCH (10:00)
[2020-05-15] MEDS ORDERED: ASPIRIN 81 MG TABLET, ENT COATED PO SCH (10:00)
[2020-05-15 19:47] VITALS: BP 144/73
--- NOTE | 2020-05-15 19:50 | PDOC H&P ---
History of Present Illness Admission Date/PCP: 05/14/20 19:48 PETE ESPINOZA PA-C History of Present Illness: SAMMY AVERY is a 69 year old female.She has a history of hypertension, h yperlipidemia, lupus she came to the emergency room last night for evaluation of chest pain, she had a chest pain for the last 1 month. She also reported increase heart rate and blood pressure when exerting herself doing yard work for the past month she said typically the yard work is is exhausting and would provoke a chest pain and sometimes palpitation. She was evaluated in the emergency room, it was felt that patient needed to be admitted to the hospital for further evaluation. She was admitted last night 3 sets of cardiac enzymes negative for MS she had a Cardiolite stress test done this morning, it was negative for any acute reversibility that would suggest ischemia. Past Medical History Cardiac Medical History: Reports: Hyperlipidema, Hypertension, Other - SVT Pulmonary Medical History: Reports: Bronchitis, Pneumonia GI Medical History: Reports: Diverticulitis, Gastroesophageal Reflux Disease Musculoskeltal Medical History: Reports: Arthritis, Fibromyalgia Psychiatric Medical History: Denies: Bipolar Disorder, Depression Past Surgical History Past Surgical History: Reports: Appendectomy, Cardiac Catheterization, Cholecystectomy, Hysterectomy, Orthopedic Surgery Social History Smoking Status: Never Smoker Electronic Cigarette use?: No Frequency of Alcohol Use: None Hx Recreational Drug Use: No Drugs: None - Advance Directive Resuscitation Status: Comfort Measures Only Family History Family History: CAD Parental Family History Reviewed: Yes Children Family History Reviewed: Yes Sibling(s) Family History Reviewed.: Yes Medication/Allergy Home Medications: Hydrochlorothiazide 25 mg PO DAILY 06/28/16 Diphenhydramine HCl [Benadryl 25 mg Capsule] 50 mg PO HSP PRN 05/14/20 Esomeprazole Magnesium [Nexium] 20 mg PO DAILY 05/14/20 Simvastatin [Zocor 40 mg Tablet] 40 mg PO QPM 05/14/20 Allergies/Adverse Reactions: adhesive [Adhesive] Allergy (Verified 05/14/20 16:49) codeine [Codeine] Allergy (Verified 05/14/20 16:49) latex [Latex] Allergy (Verified 05/14/20 16:49) Sulfa (Sulfonamide Antibiotics) Allergy (Verified 05/14/20 16:49) Review of Systems Constitutional: ABSENT: chills, fever(s), headache(s), weight gain, weight loss Eyes: ABSENT: visual disturbances Ears: ABSENT: hearing changes Cardiovascular: PRESENT: chest pain, palpitations Respiratory: ABSENT: cough, hemoptysis Gastrointestinal: ABSENT: abdominal pain, constipation, diarrhea, hematemesis, hematochezia, nausea, vomiting Genitourinary: ABSENT: dysuria, hematuria Musculoskeletal: ABSENT: joint swelling Integumentary: ABSENT: rash, wounds Neurological: ABSENT: abnormal gait, abnormal speech, confusion, dizziness, focal weakness, syncope Psychiatric: ABSENT: anxiety, depression, homidical ideation, suicidal ideation Endocrine: ABSENT: cold intolerance, heat intolerance, menstrual abnormalities, polydipsia, polyuria Hematologic/Lymphatic: ABSENT: easy bleeding, easy bruising, lymphadenopathy Physical Exam Vital Signs: Temp Pulse Resp BP Pulse Ox 97.5 F 74 16 142/87 H 99 05/15/20 15:22 05/15/20 15:22 05/15/20 15:22 05/15/20 15:22 05/15/20 15:22 Intake & Output 05/14/20 05/15/20 05/16/20 06:59 06:59 06:59 Intake Total 240 Balance 240 Weight 69.4 kg General appearance: PRESENT: no acute distress, well-developed, well-nourished Head exam: PRESENT: atraumatic, normocephalic Eye exam: PRESENT: PERRLA Ear exam: PRESENT: normal external ear exam Mouth exam: PRESENT: moist, tongue midline Neck exam: PRESENT: full ROM Respiratory exam: PRESENT: clear to auscultation jv Cardiovascular exam: PRESENT: RRR, +S1, +S2 Vascular exam: PRESENT: normal capillary refill GI/Abdominal exam: PRESENT: normal bowel sounds, soft Rectal exam: PRESENT: deferred Neurological exam: PRESENT: alert, CN II-XII grossly intact Psychiatric exam: PRESENT: appropriate affect, normal mood Skin exam: PRESENT: dry, intact, warm. ABSENT: cyanosis, rash Results Laboratory Results: 05/14/20 17:19 05/14/20 17:19 05/14/20 05/14/20 05/14/20 17:19 17:19 21:22 Creatine Kinase 75 Troponin I < 0.012 < 0.012 NT-Pro-B Natriuret Pep 58 05/15/20 03:12 Creatine Kinase Troponin I < 0.012 NT-Pro-B Natriuret Pep Impressions: Chest X-Ray 05/14/20 16:52 IMPRESSION: NO ACUTE RADIOGRAPHIC FINDING IN THE CHEST. Assessment & Plan - Diagnosis (1) Chest pain Qualifiers: Chest pain type: unspecified Qualified Code(s): R07.9 - Chest pain, unspecified Is this a current diagnosis for this admission?: Yes Plan: Patient was admitted for evaluation and management of chest pain, 3 sets of cardiac enzymes negative for acute MS the Cardiolite Lexiscan stress test negative for ischemia. Negative stress test in a female is truly negative, the predictive value of a negative stress test in a female is veryhigh (2) Hyperlipemia Qualifiers: Hyperlipidemia type: unspecified Qualified Code(s): E78.5 - Hyperlipidemia, unspecified Is this a current diagnosis for this admission?: Yes - Time Time Spent: 50 to 70 Minutes Medications reviewed and adjusted accordingly: Yes Anticipated Discharge Disposition: Home, Self Care Anticipated Discharge Timeframe: within 24 hours
--- NOTE | 2020-05-15 19:52 | PDOC DISCHARGE SUMMARY ---
Impression - Admit/DC Date/PCP Admission Date/Primary Care Provider: 05/14/20 19:48 PETE ESPINOZA PA-C Discharge Date: 05/15/20 - Discharge Diagnosis (1) Chest pain Is this a current diagnosis for this admission?: Yes (2) Hyperlipemia Is this a current diagnosis for this admission?: Yes - Additional Information Resuscitation Status: Comfort Measures Only Discharge Diet: Cardiac Discharge Activity: Activity As Tolerated Referrals: PETE ESPINOZA PA-C [Primary Care Provider] - Follow up as needed Home Medications: Hydrochlorothiazide 25 mg PO DAILY 06/28/16 Diphenhydramine HCl [Benadryl 25 mg Capsule] 50 mg PO HSP PRN 05/14/20 Esomeprazole Magnesium [Nexium] 20 mg PO DAILY 05/14/20 Simvastatin [Zocor 40 mg Tablet] 40 mg PO QPM 05/14/20 History of Present Illiness History of Present Illness: SAMMY AVERY is a 69 year old female.She has a history of hypertension, hyperlipidemia, lupus she came to the emergency room last night for evaluation of chest pain, she had a chest pain for the last 1 month. She also reported increase heart rate and blood pressure when exerting herself doing yard work for the past month she said typically the yard work is is exhausting and would provoke a chest pain and sometimes palpitation. She was evaluated in the emergency room, it was felt that patient needed to be admitted to the hospital for further evaluation. She was admitted last night 3 sets of cardiac enzymes negative for AL she had a Cardiolite stress test done this morning, it was negative for any acute reversibility that would suggest ischemia. Hospital Course Hospital Course: Patient was admitted for the management of chest pain, the chest pain was atypical, 3 sets of cardiac enzymes negative for acute AL, she underwent Cardiolite Lexiscan stress test which was negative for any acute reversibility Physical Exam Vital Signs: Temp Pulse Resp BP Pulse Ox 97.5 F 74 16 144/73 H 99 05/15/20 19:44 05/15/20 19:44 05/15/20 19:44 05/15/20 19:44 05/15/20 19:44 Intake & Output 05/14/20 05/15/20 05/16/20 06:59 06:59 06:59 Intake Total 240 Balance 240 Weight 69.4 kg General appearance: PRESENT: no acute distress Eye exam: PRESENT: PERRLA Respiratory exam: PRESENT: clear to auscultation jv Cardiovascular exam: PRESENT: +S1, +S2 GI/Abdominal exam: PRESENT: soft Results Laboratory Results: WBC 6.5 10^3/uL (4.0-10.5) 05/14/20 17:19 RBC 5.11 10^6/uL (3.72-5.28) 05/14/20 17:19 Hgb 15.9 g/dL (12.0-15.5) H 05/14/20 17:19 Hct 44.0 % (36.0-47.0) 05/14/20 17:19 MCV 86 fl (80-97) 05/14/20 17:19 MCH 31.1 pg (27.0-33.4) 05/14/20 17:19 MCHC 36.1 g/dL (32.0-36.0) H 05/14/20 17:19 RDW 14.0 % (11.5-14.0) 05/14/20 17:19 Plt Count 243 10^3/uL (150-450) 05/14/20 17:19 Lymph % (Auto) 43.5 % (13-45) 05/14/20 17:19 [place] % (Auto) 9.4 % (3-13) 05/14/20 17:19 Eos % (Auto) 2.0 % (0-6) 05/14/20 17:19 Baso % (Auto) 1.3 % (0-2) 05/14/20 17:19 Absolute Neuts (auto) 2.8 10^3/uL (1.7-8.2) 05/14/20 17:19 Absolute Lymphs (auto) 2.8 10^3/uL (0.5-4.7) 05/14/20 17:19 Absolute Monos (auto) 0.6 10^3/uL (0.1-1.4) 05/14/20 17:19 Absolute Eos (auto) 0.1 10^3/uL (0.0-0.6) 05/14/20 17:19 Absolute Basos (auto) 0.1 10^3/uL (0.0-0.2) 05/14/20 17:19 Seg Neutrophils % 43.8 % (42-78) 05/14/20 17:19 Sodium 137.9 mmol/L (137-145) 05/14/20 17:19 Potassium 3.3 mmol/L (3.6-5.0) L 05/14/20 17:19 Chloride 100 mmol/L (98-107) 05/14/20 17:19 Carbon Dioxide 27 mmol/L (22-30) 05/14/20 17:19 Anion Gap 11 (5-19) 05/14/20 17:19 BUN 20 mg/dL (7-20) 05/14/20 17:19 Creatinine 0.68 mg/dL (0.52-1.25) 05/14/20 17:19 Est GFR ( Amer) > 60 (>60) 05/14/20 17:19 Est GFR (MDRD) Non-Af > 60 (>60) 05/14/20 17:19 Glucose 97 mg/dL (75-110) 05/14/20 17:19 Hemoglobin A1c % 5.5 % (4.7-6.0) 05/14/20 17:19 Calcium 9.7 mg/dL (8.4-10.2) 05/14/20 17:19 Magnesium 2.3 mg/dL (1.6-2.3) 05/14/20 17:19 Total Bilirubin 0.6 mg/dL (0.2-1.3) 05/14/20 17:19 Direct Bilirubin 0.3 mg/dL (0.0-0.4) 05/14/20 17:19 Neonat Total Bilirubin Not Reportable 05/14/20 17:19 Neonat Direct Bilirubin Not Reportable 05/14/20 17:19 Neonat Indirect Bili Not Reportable 05/14/20 17:19 AST 26 U/L (14-36) 05/14/20 17:19 ALT 24 U/L (<35) 05/14/20 17:19 Alkaline Phosphatase 56 U/L (38-126) 05/14/20 17:19 Creatine Kinase 75 U/L (30-135) 05/14/20 17:19 Troponin I < 0.012 ng/mL 05/15/20 03:12 NT-Pro-B Natriuret Pep 58 pg/mL (<125) 05/14/20 17:19 Total Protein 7.7 g/dL (6.3-8.2) 05/14/20 17:19 Albumin 5.0 g/dL (3.5-5.0) 05/14/20 17:19 05/14/20 05/14/20 05/15/20 17:19 21:22 03:12 Troponin I < 0.012 < 0.012 < 0.012 NT-Pro-B Natriuret Pep 58 Impressions: Chest X-Ray 05/14/20 16:52 IMPRESSION: NO ACUTE RADIOGRAPHIC FINDING IN THE CHEST. Stroke Is this a Stroke Patient?: No Acute Heart Failure Is this a Heart Failure Patient?: No
[2020-05-15] MEDS ORDERED: INFLUENZA QUAD (6MOS+) 2020-21 VAC 0.5 ML SYR IM ONE (21:00)
--- NOTE | 2020-05-16 02:07 | DRAGON STRESS TEST REPORT ---
Intravenous Lexiscan Cardiolite stress test using single photon emmision computerized tomography. Date of procedure: 05/15/2020. Ordering Provider: Dr. Tillman. Patient's status: In Patient. Indication: Chest pain. Coronary risk factors: Age, hypertension, and dyslipidemia. Resting EKG: Sinus Rhythm. EKG within normal limits. The patient no chest pain or discomfort, and there were no arrhythmias seen. Stress EKG: No changes of ischemia. Reason for termination: Protocol. Conclusions: Normal EKG and hemodynamic response to IV Lexiscan. Nuclear data: At rest the patient was given 11.91 millicuries of technetium 99m sestamibi injected intravenously. As per protocol rest non gated SPECT images were obtained. Subsequently the patient was given intravenous Lexiscan at a dose of 0.4 mg in 5 mL intravenously, followed by flush with normal saline. Subsequently the stress dose of 30.9 millicuries of technetium 99m sestamibi was injected intravenously. As per protocol stress gated images were obtained. Nuclear interpretation: Review of images showed that all segments of the myocardium had normal perfusion at rest, and normal perfusion post stress with IV Lexiscan. All segments of the myocardium had normal motion, contraction, and thickening by gated study. T. I D. ratio was normal at 0.93. There is no transient ischemic dilatation of the left ventricle. Computer read rest, and stress left ventricular ejection fraction were 76%, and 78%, respectively. Conclusion: 1. There is no scintigraphic evidence of Lexiscan induced myocardial ischemia. 2. There is no scintigraphic evidence of myocardial infarction/scar. Recommendations: Aggressive risk factor modification, and treating the underlying co- morbidities. MTDD
[2020-05-16] MEDS ORDERED: INFLUENZA QUAD (6MOS+) 2020-21 VAC 0.5 ML SYR IM ONE (08:00)
== END 2020-05-15 20:47 | disposition home or self-care (01) ==
LOC: ER 16:36 → EH 19:48 → 4S 22:33
PROVIDERS: ADMIT Internal Medicine; ATTEND Internal Medicine
DX: R07.89 Other chest pain (principal); E78.5 Hyperlipidemia, unspecified; I10 Essential (primary) hypertension; K21.9 Gastro-esophageal reflux disease without esophagitis; Z79.899 Other long term (current) drug therapy; R00.2 Palpitations; R06.02 Shortness of breath; R19.7 Diarrhea, unspecified; R11.0 Nausea; M32.9 Systemic lupus erythematosus, unspecified; Z23 Encounter for immunization; Z82.49 Family history of ischemic heart disease and other diseases of the circulatory system; Z86.79 Personal history of other diseases of the circulatory system; Z98.890 Other specified postprocedural states; Z90.49 Acquired absence of other specified parts of digestive tract
CPT/HCPCS: 93005; 99285; 36415 ×2; 82550; 83735; 85025; 80053; 84484 ×2; 83036; 83880; 93017; 71046; 78452; 90686; 93010; G0378 ×3; G0008; A9500; A9270 ×7; J2785; J3490 ×3; Q9969; 90471

== ENCOUNTER → 2020-06-02 | Outpatient (CLI) | payer MEDICARE ==
--- NOTE | 2020-06-02 18:10 | RADIOLOGY REPORT (SQ) ---
EXAM DESCRIPTION: CTA CHEST IMAGES COMPLETED DATE/TIME: 06/02/2020 5:14 pm REASON FOR STUDY: R07.9 CHEST PAIN, UNSPECIFIED R07.9 CHEST PAIN, UNSPECIFIED COMPARISON: 05/14/2020 TECHNIQUE: CT scan of the chest performed using helical scanning technique with dynamic intravenous contrast injection. Images reviewed with lung, soft tissue and bone windows. Reconstructed coronal and sagittal MPR images reviewed. Additional 3 dimensional post-processing performed to develop Maximal Intensity Projection images (PR P). All images stored on PACS. All CT scanners at this facility use dose modulation, iterative reconstruction, and/or weight based d osing when appropriate to reduce radiation dose to as low as reasonably achievable (ALARA). [facility]: Dose Right [facility]: CareDose [facility]: Dose Right [facility]: Teradose 4D [facility]: [employer] CONTRAST TYPE AND DOSE: contrast/concentration: Isovue 350.00 mmol/ml; Total Contrast Delivered: 51. 9 ml; Total Saline Delivered: 76.0 ml Contrast bolus adequate for pulmonary arteries and aorta. RENAL FUNCTION: BUN 20; creatinine 0.68 RADIATION DOSE: CT Rad equipment meets quality standard of care and radiation dose reduction techniq ues were employed. CTDIvol: 12.8 - 18.8 mGy. DLP: 440 mGy-cm. . LIMITATIONS: None. FINDINGS: LUNGS AND PLEURA: No masses, infiltrates, or pneumothorax. No pleural effusions or pleura l calcifications. AORTA AND GREAT VESSELS: No aneurysm. Contrast bolus not optimized for the aorta. HEART: No pericardial effusion. Mild coronary artery calcifications. PULMONARY ARTERIES: No emboli visualized in the main pulmonary arteries or the segmental branches. HILAR AND MEDIASTINAL STRUCTURES: No identified masses or abnormal nodes. HARDWARE: None in the chest. UPPER ABDOMEN: No significant findings. Limited exam. THYROID AND OTHER SOFT TISSUES: No masses. No adenopathy. BONES: No acute or significant finding. 3D MIPS: Confirm above findings. OTHER: No other significant finding. IMPRESSION: NORMAL CTA OF THE CHEST. NO PULMONARY EMBOLI. COMMENT: Quality ID # [id number]: Final reports with documentation of one or more dose reduction techniques (e.g., Automated exposure control, adjustment of the mA and/or kV according to patient size, use of iterative reconstruction technique) TECHNICAL DOCUMENTATION: JOB ID: [id number] 2010 [employer]- All Rights Reserved Reading location - IP[facility]workstation name: [email or web address]
== END ==
LOC: RAD 16:15
PROVIDERS: ATTEND Family Medicine
DX: R07.9 Chest pain, unspecified (principal)
CPT/HCPCS: 71275